=== PATIENT | female | born 1985 | race Caucasian/White ===

== ENCOUNTER 2017-06-15 21:52 | Emergency (ER) | payer SELFPAY ==
[~2017-06-15] VITALS: Ht 180.3 cm; Wt 100.0 kg
[2017-06-15 21:54] VITALS: Ht 180.3 cm; Wt 100.0 kg
== END 2017-06-16 04:33 | disposition left against medical advice (07) ==
LOC: FTE 21:52
DX: Z53.21 Procedure and treatment not carried out due to patient leaving prior to being seen by health care provider (principal)